=== PATIENT | male | born 2000 | race Caucasian/White ===

== ENCOUNTER 2020-07-20 18:09 | Emergency (ER) | payer OTHER, SELFPAY ==
[2020-07-20 18:11] VITALS: BP 139/99; PULSE 96; RESP 18; TEMP 36.2; O2SAT 98; BMI 20.8
--- NOTE | 2020-07-20 18:18 | EKG12_ITS ---
Test Reason : CP Blood Pressure : / mmHG Vent. Rate : 093 BPM Atrial Rate : 093 BPM P-R Int : 144 ms QRS Dur : 090 ms QT Int : 342 ms P-R-T Axes : 059 081 012 degrees QTc Int : 425 ms Normal sinus rhythm Possible Left atrial enlargement Borderline ECG Confirmed by KAYLEE LYNCH, BRENDA ([id number]), film editor supervisor SILVANO BRYANT ([id number]) on 07/24/2020 4:18:00 PM Referred By: MARYJO Confirmed By:BRENDA PAGE MD
[2020-07-20 19:19] VITALS: BP 134/81; PULSE 77; RESP 18; O2SAT 100
--- NOTE | 2020-07-20 19:48 | ED.DEP ---
ED Disposition - Plan for ED Patient: Instructions: ED Marijuana Abuse Referrals: Gaston Tatum III, MD [STAFF PHYSICIAN] -
--- NOTE | 2020-07-20 19:51 | ED.VISSUMM ---
- ER Visit Summary Date of Service: 07/20/20 Chief Complaint: Feels out of it History of Present Illness: The patient is a 20 M presenting stating that he feels out of it. He states he took edible marijuana 2 hours prior to arrival. He had nausea with no vomiting. He has had a mild headache. He denies fever, chest pain, shortness of breath. He denies other drug use. Admits to occasional alcohol use but did not drink tonight. He states his symptoms are starting to improve. Denies other complaints. Physical Examination: Vitals are stable. Patient is afebrile. Alert no acute distress. Pulse ox 100% on room air. HEENT exam is unremarkable. Neck is supple. Lungs are clear and equal bilaterally. Heart is regular rate and rhythm. Abdomen is soft nontender nondistended. Extremities are unremarkable. Skin is warm and dry. No focal neurologic deficit. Remainder of exam is unremarkable. Emergency Department Course and Treatment: Patient was given Tylenol and Zofran. He was advised to follow-up with his primary care physician as needed. Advised to return to the ED for worsening complaints. Disposition: Discharge home Impression: Marijuana use This note was generated with [email or web address] dictation software. It may contain incorrect words, spelling, and punctuation that were not noted in review of the chart prior to signing ED Disposition - Plan for ED Patient: Instructions: ED Marijuana Abuse Referrals: Gaston Tatum III, MD [STAFF PHYSICIAN] -
[2020-07-20 19:56] VITALS: BP 145/89; PULSE 82; RESP 16; O2SAT 97
[2020-07-20] MEDS: Ondansetron ODT 4 MG Tablet PO (20:01)
[2020-07-20] MEDS: Acetaminophen 500 MG Tablet 1000 MG PO (20:01)
== END 2020-07-20 20:04 | disposition home or self-care (01) ==
LOC: ED 19:56
PROVIDERS: Emergency Provider Emergency Medicine
DX: F12.90 Cannabis use, unspecified, uncomplicated (principal)
CPT/HCPCS: 93005; 99283